=== PATIENT | male | born 1985 | race Two or more races ===

== ENCOUNTER 2025-06-21 04:45 | Emergency (ER) | payer OTHER ==
[~2025-06-21] VITALS: Ht 175.3 cm; Wt 86.4 kg
[2025-06-21 04:46] VITALS: BP 113/90; PULSE 115; RESP 18; TEMP 98.2; O2SAT 99
[2025-06-21] MEDS ORDERED: IBUP-1492 PO (05:37)
[2025-06-21] MEDS: IBUPROFEN 600 MG TABLET PO ONE (05:39)
== END 2025-06-21 05:49 | disposition home or self-care (01) ==
LOC: EMS 04:48
DX: G44.209 Tension-type headache, unspecified, not intractable (principal); F12.90 Cannabis use, unspecified, uncomplicated; Z59.00 Homelessness unspecified
CPT/HCPCS: 99282; Z7502; Z7610